=== PATIENT | male | born 1940 | race Caucasian/White ===

== ENCOUNTER 2021-12-05 12:57 | Outpatient (CLI) | payer MEDICARE, OTHER | END 2021-12-05 12:58 | disposition home or self-care (01) | LOC: CSHLAB 12:57 | PROVIDERS: ATTEND Internal Medicine Gastroenterology | DX: Z20.822 Contact with and (suspected) exposure to COVID-19 (principal); D64.9 Anemia, unspecified; R19.5 Other fecal abnormalities; K21.9 Gastro-esophageal reflux disease without esophagitis | CPT/HCPCS: U0003; U0005 ==